=== PATIENT | female | born 2000 | race African-American/Black ===

== ENCOUNTER 2024-11-19 19:40 | Emergency (ER) | payer OTHER ==
[~2024-11-19] VITALS: Ht 157.5 cm; Wt 52.0 kg
[2024-11-19 19:42] VITALS: PULSE 70; RESP 16; O2SAT 95
[2024-11-19 19:46] VITALS: BP 112/84; TEMP 37; O2SAT 98
[2024-11-19 20:06] LABS: CLARITY URINE CLEAR (CLEAR); COLOR URINE YELLOW (YELLOW); GLUCOSE URINE NEGATIVE (NEGATIVE); KETONES URINE 4+ (NEGATIVE); LEUKOCYTE ESTERASE URINE NEGATIVE (NEGATIVE); NITRITE URINE NEGATIVE (NEGATIVE); OCCULT BLOOD URINE NEGATIVE (NEGATIVE); PROTEIN URINE TRACE (NEGATIVE); SPECIFIC GRAVITY URINE 1.026 (1.005-1.030)
[2024-11-19 20:22] LABS: BACTERIA URINE NONE SEEN; RBC URINE NONE SEEN /hpf (0-2); SQUAMOUS EPITHELIAL CELL URINE RARE /lpf (RARE/1+); WBC URINE NONE SEEN /hpf (0-2)
[2024-11-19 21:08] LABS: BASOPHILS % 0.2 % (0.0-2.0); EOSINOPHILS % 0.2 % (0.0-5.0); HEMATOCRIT. 40.6 % (36.0-48.0); HEMOGLOBIN. 13.6 g/dL (12.0-16.0); MEAN CORPUSCULAR HEMOGLOBIN 32.6 pg (28.0-32.0); MEAN CORPUSCULAR HGB CONC 33.6 g/dL (31.0-37.0); MEAN CORPUSCULAR VOLUME 97.2 fL (81.0-99.0); MEAN PLATELET VOLUME 8.9 fl (7.4-10.4); MONOCYTES % 3.8 % (2.0-8.0); NEUTROPHILS % 87.8 % (40.0-76.0); PLATELET 245 x1000/uL (130-400); RED BLOOD CELL COUNT 4.18 mill/uL (4.2-5.4)
[2024-11-19 21:17] LABS: CHLORIDE 103 mEq/L (98-107); POTASSIUM 3.9 mEq/L (3.5-5.1); SODIUM 137 mEq/L (136-145)
[2024-11-19 21:18] LABS: CARBON DIOXIDE 20 mEq/L (21-32)
[2024-11-19 21:19] LABS: CALCIUM 10.1 mg/dL (8.7-10.4)
[2024-11-19 21:23] LABS: CREATININE 0.7 mg/dL (0.6-1.0); GLUCOSE 85 mg/dL (70-105); UREA NITROGEN BLOOD 9 mg/dL (9-23)
[2024-11-19 21:25] LABS: ALANINE AMINOTRANSFERASE 15 IU/L (10-49); ALBUMIN 4.6 g/dL (3.2-4.8); ASPARTATE AMINOTRANSFERASE 23 IU/L (<34)
[2024-11-19 21:26] LABS: BILIRUBIN DIRECT 0.2 mg/dL (<=3.0); BILIRUBIN TOTAL 0.7 mg/dL (0.1-1.0); PROTEIN TOTAL 8.2 g/dL (6.0-8.3)
[2024-11-19 21:36] LABS: HCG SCREEN NEGATIVE
[2024-11-19] MEDS: KETOROLAC 30MG/ML VIAL IM ONE (22:28)
[2024-11-19] MEDS: ONDANSETRON 4MG ODT PO ONE (22:28)
== END 2024-11-19 23:32 | disposition home or self-care (01) ==
LOC: ER 19:40
DX: R11.2 Nausea with vomiting, unspecified (principal); R68.83 Chills (without fever); M54.9 Dorsalgia, unspecified; R05.1 Acute cough
CPT/HCPCS: 99285; 71045; 80076; 80048; 81003; 81025; 84703; 83690; 85025; 36415; 93005; 96372; J1885; Q0162

== ENCOUNTER 2025-06-20 23:20 | Inpatient (IN) | payer OTHER, MEDICAID ==
[~2025-06-20] VITALS: Ht 157.5 cm; Wt 53.3 kg
[2025-06-21] VITALS (12 sets, daily range): BP systolic 97–139; BP diastolic 69–101; PULSE 93–141; RESP 19–31; TEMP 36.5–37.1; O2SAT 92–99
[2025-06-21] MEDS: SODIUM CHLORIDE 0.9% (SEPSIS BOLUS) IV ONE (00:25)
[2025-06-21] MEDS: CEFTRIAXONE 1GM/50ML 50 ML IV ONE (00:25)
[2025-06-21] MEDS: ONDANSETRON HCL 4MG/2ML INJ IV ONE (00:26)
[2025-06-21] MEDS: MORPHINE SULFATE 4 MG/ML INJ (FOR IV/IM USE) IV ONE (00:26)
[2025-06-21 00:36] LABS: BG BASE EXCESS -7.1 mmol/L (-2.0-3.0); BG CARBOXYHEMOGLOBIN 0.1 % (0.5-1.5); BG DEOXYHEMOGLOBIN 2.8 % (0.0-5.0); BG HCO3 ACT 16.7 mmol/L (21.0-28.0); BG METHEMOGLOBIN 0.3 % (0.5-1.5); BG OXYGEN SATURATION 97.2 % (94.0-98.0); BG OXYHEMOGLOBIN 96.8 % (94.0-98.0); BG PCO2 29.6 mmHg (32.0-45.0); BG PH 7.368 (7.350-7.450); BG PO2 95.9 mmHg (83.0-108.0); BG SAMPLE SITE RIGHT RADIAL; BG TOTAL HEMOGLOBIN 15.7 g/dL (12.0-16.0); BG VENT MODE ROOM AIR
[2025-06-21 00:37] LABS: BASOPHILS % 0.2 % (0.0-2.0); EOSINOPHILS % 0.7 % (0.0-5.0); HEMATOCRIT. 44.7 % (36.0-48.0); HEMOGLOBIN. 15.0 g/dL (12.0-16.0); LYMPHOCYTES % 8.3 % (20.0-50.0); MEAN PLATELET VOLUME 9.9 fl (7.4-10.4); MONOCYTES % 2.6 % (2.0-8.0); NEUTROPHILS % 88.2 % (40.0-76.0); PLATELET 265 x1000/uL (130-400); RED BLOOD CELL COUNT 4.63 mill/uL (4.2-5.4); RED CELL DISTRIBUTION WIDTH 12.8 % (11.6-14.6)
[2025-06-21 01:09] LABS: CREATININE 0.8 mg/dL (0.6-1.0); UREA NITROGEN BLOOD < 5 mg/dL (9-23)
[2025-06-21 01:10] LABS: TROPONIN I HIGH SENSITIVITY < 4 ng/L (3.0-34)
[2025-06-21 01:11] LABS: ASPARTATE AMINOTRANSFERASE 34 IU/L (<34); BILIRUBIN DIRECT 0.1 mg/dL (<=3.0); BILIRUBIN TOTAL 0.4 mg/dL (0.1-1.0); PROTEIN TOTAL 8.4 g/dL (6.0-8.3)
[2025-06-21] MEDS: ALBUTEROL (0.083%) 2.5MG/3ML NEB HHN ONE ×2 (01:54→02:08)
[2025-06-21] MEDS: IPRATROPIUM BROMIDE (0.02%) 0.5MG/2.5ML NEB HHN ONE ×2 (01:54→02:08)
[2025-06-21] MEDS: AZITHROMYCIN 500MG/250ML 250 ML IV ONE (02:00)
[2025-06-21 02:13] LABS: CLARITY URINE CLEAR (CLEAR); COLOR URINE YELLOW (YELLOW); GLUCOSE URINE NEGATIVE (NEGATIVE); KETONES URINE 3+ (NEGATIVE); LEUKOCYTE ESTERASE URINE NEGATIVE (NEGATIVE); NITRITE URINE NEGATIVE (NEGATIVE); OCCULT BLOOD URINE NEGATIVE (NEGATIVE); PH URINE 5.5 (4.5-8.0); PROTEIN URINE NEGATIVE (NEGATIVE); SPECIFIC GRAVITY URINE 1.011 (1.005-1.030); UROBILINOGEN URINE 0.2 E.U./dL (0.2-1.0)
[2025-06-21 02:25] LABS: *AMPHETAMINES SCREEN URINE NEGATIVE (NEGATIVE); *BARBITURATES SCREEN URINE NEGATIVE (NEGATIVE); *BENZODIAZEPINES SCREEN URINE NEGATIVE (NEGATIVE); *COCAINE SCREEN URINE NEGATIVE (NEGATIVE); CANNABINOID URINE SCREEN PRESUMPTIVE POSITIVE (NEGATIVE); ECSTASY MDMA SCREEN URINE NEGATIVE (NEGATIVE); METHADONE URINE SCREEN NEGATIVE (NEGATIVE); OPIATES URINE SCREEN PRESUMPTIVE POSITIVE (NEGATIVE); PHENCYCLIDINE URINE SCREEN NEGATIVE (NEGATIVE)
[2025-06-21] MEDS: MAGNESIUM 2 G PREMIX 50 ML IV ONE (02:30)
[2025-06-21] MEDS: METHYLPREDNISOLONE SOD SUCC 125MG/2ML (ACT-O-VIAL) IV ONE (02:30)
[2025-06-21] MEDS: SODIUM CHLORIDE 0.9% 1,000 ML IV ONE (02:53)
[2025-06-21] MEDS: KETOROLAC 15MG/ML VIAL IV NR (02:59)
[2025-06-21 03:22] LABS: HCG SCREEN NEGATIVE
[2025-06-21] MEDS: METHYLPREDNISOLONE SOD SUCC 40MG/ML (ACT-O-VIAL) IV SCH (06:39)
[2025-06-21] MEDS ORDERED: IOHEXOL-350 100 ML BOTTLE ONE (07:01)
[2025-06-21] MEDS: IPRATROPIUM/ALBUTEROL 0.5-3(2.5)MG/3ML NEB HHN PRN (08:45)
[2025-06-21] MEDS ORDERED: GUAIFENESIN-DM 200MG-20MG/10ML UDC PO PRN (13:15)
[2025-06-21 16:21] LABS: INFLUENZA TYPE A Presumptive Negative (Pres. Neg.); INFLUENZA TYPE B Presumptive Negative (Pres. Neg.)
[2025-06-21 16:22] LABS: RESPIRATORY SYNCYTIAL VIRUS Not Detected (Not Detectd)
[2025-06-21] MEDS ORDERED: ACETAMINOPHEN 325MG TABLET PO PRN ×2 (17:00)
[2025-06-21] MEDS: IBUPROFEN 400MG TABLET PO PRN (17:51)
[2025-06-21] MEDS: IPRATROPIUM BROMIDE (0.02%) 0.5MG/2.5ML NEB HHN PRN (21:10)
[2025-06-22] VITALS (7 sets, daily range): BP systolic 106–126; BP diastolic 71–90; PULSE 80–112; RESP 15–26; TEMP 36.9–37.1; O2SAT 96–98
[2025-06-22] MEDS: AZITHROMYCIN 500MG/250ML 250 ML IV SCH (02:08)
[2025-06-22] MEDS ORDERED: METH4TAB95 MT (10:35)
[2025-06-22] MEDS ORDERED: LEVO-65 MT (10:35)
[2025-06-22] MEDS ORDERED: ALBU18HF2 IH (10:35)
== END 2025-06-22 12:50 | disposition home or self-care (01) | DRG 871 ==
LOC: ER 23:55 → 5EST 06-21 01:47 → EDBEDREQTM 06-21 01:59 → EDBEDREQ 06-21 01:59 → ENRESERV 06-21 05:22 → 5EST 06-21 05:56
PROVIDERS: ADMIT Internal Medicine; ATTEND Internal Medicine
DX: A41.9 Sepsis, unspecified organism (principal); J96.00 Acute respiratory failure, unspecified whether with hypoxia or hypercapnia; J45.901 Unspecified asthma with (acute) exacerbation; Z20.822 Contact with and (suspected) exposure to COVID-19; M54.50 Low back pain, unspecified; F12.90 Cannabis use, unspecified, uncomplicated; J06.9 Acute upper respiratory infection, unspecified; Z79.899 Other long term (current) drug therapy
CPT/HCPCS: 36415; 36600; 71045; 71275; 80048; 80076; 80305; 81003; 82375; 82805; 83605; 83880; 84145; 84484; 84703; 85025; 87420; 87426; 87804; 93005; 94070; 94640; 94664; 96365; 96375; 98960; 99291; A4606; J0456; J0696; J1885; J2270; J2405; J2919; J3475; J7030; Q9967